=== PATIENT | male | born 1995 | race Caucasian/White ===

== ENCOUNTER 2018-09-18 22:58 | Emergency (ER) | payer BC ==
[~2018-09-18] VITALS: Ht 182.9 cm; Wt 68.0 kg
[2018-09-19] MEDS ORDERED: LIDOCAINE 1% 10 MG/ML, 20 ML MDV INJ ONE (00:30)
[2018-09-19 01:00] VITALS: BP_SYST 118
[2018-09-19] MEDS ORDERED: BACITRACIN 1 GM OINT TP ONE ×2 (01:00→01:10)
== END 2018-09-19 01:00 | disposition home or self-care (01) ==
LOC: SED 22:58
DX: S61.412A Laceration without foreign body of left hand, initial encounter (principal); W26.0XXA Contact with knife, initial encounter; Y93.89 Activity, other specified; Y92.89 Other specified places as the place of occurrence of the external cause; Y99.8 Other external cause status
CPT/HCPCS: 12001; 99283; J2001